=== PATIENT | female | born 1965 | race Caucasian/White ===

== ENCOUNTER 2019-06-30 03:31 | Emergency (ER) | payer SELFPAY ==
[~2019-06-30] VITALS: Ht 170.2 cm; Wt 92.0 kg
[~2019-06-30 03:31] MED LIST: TRAM50TA2 PO
[2019-06-30 03:45] VITALS: Ht 170.2 cm; Wt 92.0 kg
[2019-06-30] MEDS ORDERED: IBUPROFEN 600 MG TAB PO ONE (04:00)
[2019-06-30] MEDS ORDERED: ACETAMINOPHEN 500 MG TAB PO STA (04:10)
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
== END 2019-06-30 08:33 | disposition home or self-care (01) ==
LOC: E/R 03:31
DX: S80.02XA Contusion of left knee, initial encounter (principal); W01.0XXA Fall on same level from slipping, tripping and stumbling without subsequent striking against object, initial encounter; Y92.009 Unspecified place in unspecified non-institutional (private) residence as the place of occurrence of the external cause
CPT/HCPCS: 73562